=== PATIENT | male | born 1965 | race African-American/Black ===

== ENCOUNTER 2018-11-22 23:24 | Inpatient (IN) | payer SELFPAY ==
[~2018-11-22] VITALS: Ht 182.9 cm; Wt 111.6 kg
[2018-11-23] MEDS ORDERED: KETOROLAC 30MG/ML VIAL IV STA (00:44)
[2018-11-23] MEDS ORDERED: ONDANSETRON HCL 4MG/2ML INJ IV STA ×2 (00:44→04:26)
[2018-11-23] MEDS ORDERED: SODIUM CHLORIDE 0.9% 1,000 ML IV ONE ×2 (00:44→04:26)
[2018-11-23 01:09] LABS: HEMATOCRIT. 45.4 % (42.0-52.0); HEMOGLOBIN. 15.1 g/dL (14.0-18.0); MEAN CORPUSCULAR HEMOGLOBIN 28.1 pg (28.0-32.0); MEAN CORPUSCULAR VOLUME 84.3 fL (80.0-94.0); MEAN PLATELET VOLUME 7.8 fl (7.4-10.4); PLATELET 244 x1000/uL (130-400); RED BLOOD CELL COUNT 5.39 mill/uL (4.7-6.1); RED CELL DISTRIBUTION WIDTH 13.9 % (11.6-14.6)
[2018-11-23 01:12] LABS: CHLORIDE 104 mEq/L (98-107)
[2018-11-23 01:49] LABS: CLARITY URINE CLEAR (CLEAR); COLOR URINE YELLOW (YELLOW); KETONES URINE 1+ (NEGATIVE); LEUKOCYTE ESTERASE URINE 1+ (NEGATIVE); NITRITE URINE POSITIVE (NEGATIVE); OCCULT BLOOD URINE 3+ (NEGATIVE); PROTEIN URINE NEGATIVE (NEGATIVE); SPECIFIC GRAVITY URINE 1.012 (1.005-1.030); UROBILINOGEN URINE 0.2 E.U./dL (0.2-1.0)
[2018-11-23 01:53] LABS: PLATELET ESTIMATE NORMAL
[2018-11-23] MEDS ORDERED: LEVOFLOXACIN 750MG PREMIX 150 ML IV ONE (04:00)
[2018-11-23] MEDS ORDERED: CEFTRIAXONE 1 G PREMIX 50 ML IV ONE (04:00)
[2018-11-23] MEDS ORDERED: MORPHINE SULFATE 4 MG/ML CPJ (NOT FOR IM USE) IV STA (04:26)
[2018-11-23] MEDS ORDERED: METOCLOPRAMIDE HCL 10MG/2ML VIAL IV ONE (06:00)
[2018-11-23 10:10] VITALS: BP 154/87
[2018-11-23 10:28] VITALS: BP 154/87
[2018-11-23] MEDS ORDERED: ACETAMINOPHEN 650MG/20.3ML UDC GT PRN (11:30)
[2018-11-23] MEDS ORDERED: IPRATROPIUM/ALBUTEROL 0.5-3(2.5)MG/3ML NEB INH PRN (11:30)
[2018-11-23] MEDS ORDERED: NA PHOS,M-B/NA PHOS,DI-BA ENEMA 118ML PR PRN (11:30)
[2018-11-23] MEDS ORDERED: ONDANSETRON HCL 4MG/2ML INJ IV PRN (11:30)
[2018-11-23] MEDS ORDERED: MAGNESIUM/ALUMINUM HYDROXIDE/SIMETHICONE 30ML UDC PO PRN (11:30)
[2018-11-23] MEDS ORDERED: DIPHENHYDRAMINE 50MG/ML VIAL IV PRN (11:30)
[2018-11-23] MEDS ORDERED: DOCUSATE SODIUM 100MG CAPSULE PO PRN (11:30)
[2018-11-23] MEDS ORDERED: ACETAMINOPHEN 650MG SUPP PR PRN (11:30)
[2018-11-23 12:00] VITALS: BP 164/104
[2018-11-23] MEDS: ENOXAPARIN 40MG/0.4ML SYR SUBCUT SCH (12:07)
[2018-11-23] MEDS: SODIUM CHLORIDE 0.45% 1,000 ML IV SCH ×2 (12:07→23:43)
[2018-11-23] MEDS: HYDROCODONE/ACETAMINOPHEN 5/325MG TABLET PO PRN ×2 (12:09→17:58)
[2018-11-23] MEDS: CLONIDINE 0.1MG TABLET PO PRN (13:36)
[2018-11-23 13:41] LABS: HEMATOCRIT. 42.7 % (42.0-52.0); HEMOGLOBIN. 14.2 g/dL (14.0-18.0); MEAN CORPUSCULAR HEMOGLOBIN 28.1 pg (28.0-32.0); MEAN CORPUSCULAR VOLUME 84.6 fL (80.0-94.0); MEAN PLATELET VOLUME 7.7 fl (7.4-10.4); PLATELET 222 x1000/uL (130-400); RED BLOOD CELL COUNT 5.04 mill/uL (4.7-6.1); RED CELL DISTRIBUTION WIDTH 14.1 % (11.6-14.6)
[2018-11-23 13:50] LABS: CHLORIDE 106 mEq/L (98-107)
[2018-11-23] MEDS ORDERED: SODIUM CHLORIDE 0.9% INJ 3ML FLUSH IVF SCH (14:00)
[2018-11-23 14:01] LABS: PLATELET ESTIMATE NORMAL
[2018-11-23 15:58] LABS: *BARBITURATES SCREEN URINE NEGATIVE (NEGATIVE); *BENZODIAZEPINES SCREEN URINE NEGATIVE (NEGATIVE); CANNABINOID URINE SCREEN NEGATIVE (NEGATIVE)
[2018-11-23 15:59] LABS: *AMPHETAMINES SCREEN URINE NEGATIVE (NEGATIVE); *COCAINE SCREEN URINE NEGATIVE (NEGATIVE); METHADONE URINE SCREEN NEGATIVE (NEGATIVE); OPIATES URINE SCREEN NEGATIVE (NEGATIVE); PHENCYCLIDINE URINE SCREEN NEGATIVE (NEGATIVE)
[2018-11-23 16:00] VITALS: BP 144/91
[2018-11-23] MEDS: AMLODIPINE 5MG TABLET PO SCH ×2 (18:48→20:57)
[2018-11-23 20:00] VITALS: BP 135/88
[2018-11-23 20:11] LABS: CLARITY URINE CLEAR (CLEAR); COLOR URINE YELLOW (YELLOW); KETONES URINE TRACE (NEGATIVE); LEUKOCYTE ESTERASE URINE 1+ (NEGATIVE); NITRITE URINE POSITIVE (NEGATIVE); OCCULT BLOOD URINE 3+ (NEGATIVE); PROTEIN URINE 1+ (NEGATIVE); SPECIFIC GRAVITY URINE 1.022 (1.005-1.030)
[2018-11-23] MEDS: ACETAMINOPHEN 325MG TABLET PO PRN (21:05)
[2018-11-24] VITALS: BP 131/91
[2018-11-24] MEDS: HYDROCODONE/ACETAMINOPHEN 5/325MG TABLET PO PRN (00:39)
[2018-11-24] MEDS: CEFTRIAXONE 1 G PREMIX 50 ML IV SCH (02:42)
[2018-11-24 04:00] VITALS: BP 129/79
[2018-11-24 07:15] LABS: BASOPHILS % 0.4 % (0.0-2.0); EOSINOPHILS % 0.5 % (0.0-5.0); HEMATOCRIT. 41.4 % (42.0-52.0); HEMOGLOBIN. 13.6 g/dL (14.0-18.0); LYMPHOCYTES % 8.5 % (20.0-50.0); MEAN CORPUSCULAR HEMOGLOBIN 28.1 pg (28.0-32.0); MEAN CORPUSCULAR VOLUME 85.2 fL (80.0-94.0); MEAN PLATELET VOLUME 7.8 fl (7.4-10.4); MONOCYTES % 10.6 % (2.0-8.0); PLATELET 196 x1000/uL (130-400); RED BLOOD CELL COUNT 4.86 mill/uL (4.7-6.1)
[2018-11-24 07:47] LABS: CHLORIDE 104 mEq/L (98-107)
[2018-11-24 07:55] LABS: LDL CHOLESTEROL 49 mg/dL (5-100)
[2018-11-24 07:57] LABS: HDL CHOLESTEROL 33 mg/dL (40-59)
[2018-11-24 08:04] VITALS: BP 137/85
[2018-11-24] MEDS: HYDROCODONE/ACETAMINOPHEN 10/325MG TABLET PO PRN ×2 (08:14→21:37)
[2018-11-24] MEDS: ENOXAPARIN 40MG/0.4ML SYR SUBCUT SCH (08:14)
[2018-11-24] MEDS: AMLODIPINE 5MG TABLET PO SCH ×2 (08:14→20:17)
[2018-11-24 12:00] VITALS: BP 144/97
[2018-11-24] MEDS ORDERED: POTASSIUM CHLORIDE 20MEQ TABLET SR PO SCH (12:30)
[2018-11-24] MEDS: SODIUM CHLORIDE 0.45% 1,000 ML IV SCH (12:46)
[2018-11-24] MEDS ORDERED: VANCOMYCIN 2,000 MG in DEXT 5% WATER 500 ML IV NR (14:30)
[2018-11-24 16:00] VITALS: BP 136/93
[2018-11-24] MEDS: SODIUM CHLORIDE 0.9% 1,000 ML IV SCH (17:09)
[2018-11-24 20:00] VITALS: BP 130/90
[2018-11-24] MEDS: ACETAMINOPHEN 325MG TABLET PO PRN (20:17)
[2018-11-24] MEDS ORDERED: ACETAMINOPHEN 325MG TABLET PO PRN (22:45)
[2018-11-25] VITALS (7 sets, daily range): BP systolic 136–159; BP diastolic 75–97
[2018-11-25] MEDS: CEFTRIAXONE 1 G PREMIX 50 ML IV SCH (01:58)
[2018-11-25 06:15] LABS: HEMATOCRIT. 44.2 % (42.0-52.0); HEMOGLOBIN. 14.4 g/dL (14.0-18.0); MEAN CORPUSCULAR VOLUME 85.9 fL (80.0-94.0); PLATELET 195 x1000/uL (130-400); RED BLOOD CELL COUNT 5.14 mill/uL (4.7-6.1); RED CELL DISTRIBUTION WIDTH 14.2 % (11.6-14.6)
[2018-11-25] MEDS: SODIUM CHLORIDE 0.9% 1,000 ML IV SCH ×2 (07:05→22:33)
[2018-11-25 08:14] LABS: CHLORIDE 105 mEq/L (98-107)
[2018-11-25 08:20] LABS: PHOSPHORUS 3.2 mg/dL (2.5-4.9)
[2018-11-25] MEDS ORDERED: VANCOMYCIN 1250MG in DEXTROSE 5% WATER 250ML IV SCH (09:00)
[2018-11-25] MEDS: AMLODIPINE 5MG TABLET PO SCH ×2 (09:29→21:27)
[2018-11-25] MEDS: ENOXAPARIN 40MG/0.4ML SYR SUBCUT SCH (09:30)
[2018-11-25] MEDS: HYDROCODONE/ACETAMINOPHEN 10/325MG TABLET PO PRN ×2 (12:44→21:27)
[2018-11-25] MEDS ORDERED: LEVO500T2 MT (14:59)
[2018-11-25 15:31] LABS: PLATELET ESTIMATE NORMAL
[2018-11-25] MEDS ORDERED: VANCOMYCIN 1 G PREMIX 200 ML IV SCH (21:00)
[2018-11-26] VITALS: BP 142/98
[2018-11-26 00:30] VITALS: BP 145/84
[2018-11-26] MEDS: CEFTRIAXONE 1 G PREMIX 50 ML IV SCH (03:14)
[2018-11-26 04:00] VITALS: BP 154/99
[2018-11-26] MEDS: CLONIDINE 0.1MG TABLET PO PRN (05:57)
[2018-11-26 06:59] LABS: BASOPHILS % 0.6 % (0.0-2.0); EOSINOPHILS % 1.2 % (0.0-5.0); HEMOGLOBIN. 13.8 g/dL (14.0-18.0); LYMPHOCYTES % 22.9 % (20.0-50.0); MEAN CORPUSCULAR HEMOGLOBIN 28.4 pg (28.0-32.0); MEAN CORPUSCULAR VOLUME 84.6 fL (80.0-94.0); MEAN PLATELET VOLUME 7.6 fl (7.4-10.4); MONOCYTES % 14.6 % (2.0-8.0); NEUTROPHILS % 60.7 % (40.0-76.0); PLATELET 224 x1000/uL (130-400); RED BLOOD CELL COUNT 4.85 mill/uL (4.7-6.1); RED CELL DISTRIBUTION WIDTH 13.8 % (11.6-14.6)
[2018-11-26 07:08] LABS: CHLORIDE 104 mEq/L (98-107)
[2018-11-26 07:18] LABS: PHOSPHORUS 3.2 mg/dL (2.5-4.9)
[2018-11-26] MEDS: HYDROCODONE/ACETAMINOPHEN 10/325MG TABLET PO PRN (07:40)
[2018-11-26 08:15] VITALS: BP 151/91
[2018-11-26] MEDS ORDERED: ENOXAPARIN 30MG/0.3ML SYR SUBCUT SCH (09:00)
== END 2018-11-26 08:20 | disposition home or self-care (01) | DRG 720 ==
LOC: ER 23:24 → 5WST 11-23 05:49 → EDBEDREQ 11-23 05:52 → EDBEDREQTM 11-23 05:52 → ENRESERV 11-23 08:16
PROVIDERS: ADMIT Family Medicine; ATTEND Family Medicine
DX: A41.9 Sepsis, unspecified organism (principal); N17.9 Acute kidney failure, unspecified; E44.0 Moderate protein-calorie malnutrition; E87.1 Hypo-osmolality and hyponatremia; E87.6 Hypokalemia; N18.9 Chronic kidney disease, unspecified; I12.9 Hypertensive chronic kidney disease with stage 1 through stage 4 chronic kidney disease, or unspecified chronic kidney disease; M47.9 Spondylosis, unspecified; N13.6 Pyonephrosis; R65.20 Severe sepsis without septic shock; Z82.49 Family history of ischemic heart disease and other diseases of the circulatory system; Z88.0 Allergy status to penicillin; Z87.442 Personal history of urinary calculi; Z68.33 Body mass index [BMI] 33.0-33.9, adult
CPT/HCPCS: 36415; 74176; 76770; 80048; 80061; 80202; 80305; 83036; 83605; 83735; 84100; 87077; 87186; 93306; 96361; 96365; 96367; 96375; 96376; 99285; J0696; J1650; J1885; J1956; J2270; J2405; J2765; J3370; J7030; J7060